=== PATIENT | male | born 1960 | race Two or more races ===

== ENCOUNTER 2021-03-30 01:20 | Emergency (ER) | payer OTHER ==
[~2021-03-30] VITALS: Ht 175.3 cm; Wt 75.3 kg
[2021-03-30] MEDS ORDERED: IBUP800T27 PO (03:48)
[2021-03-30 04:10] VITALS: BP 147/84
== END 2021-03-30 04:15 | disposition home or self-care (01) ==
LOC: ER 01:20
DX: L02.212 Cutaneous abscess of back [any part, except buttock and flank] (principal)
CPT/HCPCS: 10060

== ENCOUNTER 2023-07-04 19:10 | Emergency (ER) | payer SELFPAY ==
[~2023-07-04] VITALS: Ht 175.3 cm; Wt 71.3 kg
[~2023-07-04 19:10] MED LIST: IBUP-1456 PO
[2023-07-04] MEDS ORDERED: HYDR-4902 PO (20:44)
[2023-07-04] MEDS ORDERED: CEPH500C PO (20:44)
[2023-07-04] MEDS ORDERED: MUPI2OIN2 EX (20:44)
[2023-07-04 21:55] VITALS: BP 121/78; PULSE 78; RESP 18; TEMP 98.4; O2SAT 98
[2023-07-05] MEDS: cefTRIAXone SOD 1,000 MG VL IM ONE (01:49)
[2023-07-05] MEDS: HYDROcodone-ACET 5/325MG TAB PO ONE (01:49)
[2023-07-05] MEDS: NEOMYCIN-BACITRACIN-POLYM UNITDOSE PKG TOP OINT TOP ONE (01:50)
== END 2023-07-04 21:53 | disposition home or self-care (01) ==
LOC: ER 19:10
DX: T22.20XA Burn of second degree of shoulder and upper limb, except wrist and hand, unspecified site, initial encounter (principal); T23.301A Burn of third degree of right hand, unspecified site, initial encounter; T23.341A Burn of third degree of multiple right fingers (nail), including thumb, initial encounter; T31.0 Burns involving less than 10% of body surface; K21.9 Gastro-esophageal reflux disease without esophagitis; Z79.1 Long term (current) use of non-steroidal anti-inflammatories (NSAID); X08.8XXA Exposure to other specified smoke, fire and flames, initial encounter; Y93.89 Activity, other specified; Y92.89 Other specified places as the place of occurrence of the external cause; Y99.8 Other external cause status
CPT/HCPCS: 96372; 99283; J0696